=== PATIENT | male | born 1970 | race Caucasian/White ===

== ENCOUNTER 2020-11-16 13:56 | Emergency (ER) | payer OTHER ==
[2020-11-16 15:01] LABS: BASOPHIL 0.2 % (0-2); EOSINOPHIL 0.2 % (0-5); HCT 39.6 % (42.0-52.0); HGB 13.5 g/dl (13.2-18.0); LYMPHOCYTE 8.6 % (15-48); MCH 30.2 pg (25.0-31.0); MCHC 34.1 g/dL (32.0-36.0); MCV 88.6 fL (78.0-100.0); MONOCYTE 4.9 % (0-12); MPV 8.8 fL (6.0-9.5); NEUTROPHIL 85.8 % (41-80); NRBC 0; PLT 213 K/uL (150-400); RBC 4.47 M/uL (4.70-6.00); RDW 12.5 % (11.5-14.0); WBC 11.3 K/uL (4.0-10.5)
[2020-11-16 15:16] LABS: ALBUMIN 4.2 g/dL (3.4-5.0); BILIRUBIN - TOTAL 0.5 mg/dL (0.2-1.0); BUN/CREAT RATIO (CALC) 20.4 RATIO; CREATININE 1.13 mg/dL (0.67-1.17); GLOBULIN (CALCULATION) 3.3 g/dL; POTASSIUM 3.5 mmol/L (3.5-5.1); TOTAL PROTEIN 7.5 g/dL (6.4-8.2)
[2020-11-16 15:25] LABS: BILIRUBIN NEGATIVE (NEGATIVE); BLOOD 1+ Ery/uL (NEGATIVE); CLARITY CLEAR (CLEAR); COLOR YELLOW (YELLOW); GLUCOSE (U) NORMAL (NORMAL); LEUKOCYTES NEGATIVE Leu/uL (NEGATIVE); NITRITE NEGATIVE (NEGATIVE); PROTEIN NEGATIVE (NEGATIVE); SPECIFIC GRAVITY 1.015 (1.001-1.030); UROBILINOGEN 0.2 mg/dL (0.2-1.0)
[2020-11-16 15:29] LABS: URINARY WBC RARE
[2020-11-16] MEDS ORDERED: FLOMAX0.4 MG PO (17:04)
[2020-11-16] MEDS ORDERED: PERCOCET 5-3251 EACH PO (17:04)
[2020-11-16] MEDS ORDERED: NAPROXEN500 MG PO (17:04)
== END 2020-11-16 17:20 | disposition home or self-care (01) ==
LOC: FER 13:56
PROVIDERS: Emergency Medicine
DX: N13.2 Hydronephrosis with renal and ureteral calculous obstruction (principal); Z87.442 Personal history of urinary calculi; Z86.19 Personal history of other infectious and parasitic diseases
CPT/HCPCS: 36415; 80053; 81001; 85025; J1170; J1885; J2405; J7030